=== PATIENT | female | born 2000 | race Caucasian/White ===

== ENCOUNTER 2018-02-06 18:51 | Emergency (ER) | END 2018-02-06 21:00 | disposition home or self-care (01) ==

== ENCOUNTER 2018-10-25 19:18 | Emergency (ER) | payer OTHER ==
[~2018-10-25] VITALS: Ht 160 cm; Wt 48.9 kg
[~2018-10-25 19:18] MED LIST: IBUP-1561 PO; LOPE2CAP PO; OMEP20CA16 PO
[2018-10-25 19:24] VITALS: BP 105/63; PULSE 83; RESP 18; Ht 160 cm; Wt 48.9 kg
[2018-10-25] MEDS ORDERED: FAMOTIDINE 20 MG TAB PO ONE (20:00)
[2018-10-25] MEDS ORDERED: LIDOCAINE/MYLANTA 40 ML BTL PO ONE (20:00)
[2018-10-25] MEDS ORDERED: DIPHTH/TET/ACEL PERTUSS (ADULT) 0.5 ML VIAL IM* ONE (20:00)
[2018-10-25] MEDS ORDERED: IBUPROFEN 800 MG TAB PO ONE (20:00)
[2018-10-25] MEDS ORDERED: LOPERAMIDE 2 MG CAP PO ONE (20:00)
== END 2018-10-25 19:55 | disposition home or self-care (01) ==
LOC: FTE 19:18
DX: K29.00 Acute gastritis without bleeding (principal); K59.1 Functional diarrhea
CPT/HCPCS: 81003; 81025; Z7502; Z7610; 99283